=== PATIENT | female | born 1985 | race Hispanic/Latino ===

== ENCOUNTER 2016-08-17 04:27 | Inpatient (IN) | payer BC, OTHER ==
[2016-08-17] MEDS ORDERED: HYDROmorphone 2 mg/ml ISec IVP STA ×2 (04:50→06:12)
--- NOTE | 2016-08-17 04:52 | ED PDOC ---
Arrival/HPI - General Chief Complaint: Chest Pain Time Seen by Provider: 08/17/16 04:36 Historian: Patient - History of Present Illness Narrative History of Present Illness (Text): 08/17/16 04:50 Patience Mustafa is a 31 year old female who presents to the Emergency department complaining of epigastric pain radiating to her back tonight. Patient reports associated nausea and 2 episodes of vomiting. Patient denies any fever, chills, shortness of breath, diarrhea, urinary symptoms, back pain, neck pain, headache , dizziness, or any other complaints. Time/Duration: Other (tonight) Symptom Onset: Gradual Symptom Course: Unchanged Activities at Onset: Rest, Light Context: Home Past Medical History - Provider Review Nursing Documentation Reviewed: Yes - Psychiatric Hx Substance Use: No Family/Social History - Physician Review Nursing Documentation Reviewed: Yes Family/Social History: Unknown Family HX Smoking Status: Never Smoked Hx Alcohol Use: Yes Frequency of alcohol use: Socially Hx Substance Use: No Allergies/Home Meds Allergies/Adverse Reactions: Allergies No Known Allergies Allergy (Verified 08/17/16 04:46) Home Medications: Home Meds Medication Instructions Recorded Confirmed No Known Home Med 08/17/16 08/17/16 Review of Systems - Physician Review All systems were reviewed & negative as marked: Yes - Review of Systems Constitutional: Normal. absent: Fevers Eyes: Normal ENT: Normal Respiratory: Normal. absent: SOB, Cough Cardiovascular: Normal Gastrointestinal: Abdominal Pain, Nausea. absent: Diarrhea Genitourinary Female: Normal. absent: Dysuria, Hematuria, Urine Output Changes Musculoskeletal: Back Pain. absent: Neck Pain Skin: Normal. absent: Rash Neurological: Normal. absent: Headache, Dizziness Endocrine: Normal Hemo/Lymphatic: Normal Psychiatric: Normal Physical Exam Vital Signs Reviewed: Yes Vital Signs Temp Pulse Resp BP Pulse Ox 08/17/16 06:45 98.4 F 79 18 117/71 98 08/17/16 04:42 98.3 F 71 18 141/96 H 100 Temperature: Afebrile Blood Pressure: Normal Pulse: Regular Respiratory Rate: Normal Appearance: Positive for: Well-Appearing, Non-Toxic, Comfortable Pain Distress: None Mental Status: Positive for: Alert and Oriented X 3 - Systems Exam Head: Present: Atraumatic, Normocephalic Pupils: Present: PERRL Extroacular Muscles: Present: EOMI Conjunctiva: Present: Normal Mouth: Present: Moist Mucous Membranes Neck: Present: Normal Range of Motion Respiratory/Chest: Present: Clear to Auscultation, Good Air Exchange. No: Respiratory Distress, Accessory Muscle Use Cardiovascular: Present: Regular Rate and Rhythm, Normal S1, S2. No: Murmurs Abdomen: Present: Tenderness (Epigastric tenderness), Normal Bowel Sounds. No: Distention, Peritoneal Signs Back: Present: Normal Inspection Upper Extremity: Present: Normal Inspection. No: Cyanosis, Edema Lower Extremity: Present: Normal Inspection. No: Edema Neurological: Present: GCS=15, CN II-XII Intact, Speech Normal Skin: Present: Warm, Dry, Normal Color. No: Rashes Psychiatric: Present: Alert, Oriented x 3, Normal Insight, Normal Concentration Medical Decision Making ED Course and Treatment: 08/17/16 04:50 Impression: 31 year old female complaining of epigastric pain radiating to her back with associated nausea and vomiting. Plan: -- US Gallbladder -- EKG -- Labs, cardiac enzymes, amylase, lipase, blood culture, D-dimer -- Urinalysis -- IV fluids -- Zofran -- Protonix -- Dilaudid -- Reassess and disposition Progress Notes: Reviewed EKG, NSR at [address]-segment elevations or depressions, no T-wave inversions, normal intervals. 08/17/16 05:58 Reviewed sono, US Gallbladder shows: Liver: Enlarged, 20.3 cm. Normal echogenicity. No mass. No intrahepatic bile duct dilatation. Gallbladder: Gallstones. Nonmobile stone within neck. No wall thickening. No pericholecystic fluid. No sonographic Perry's sign. Common bile duct: Up to 0.64 cm in diameter. No stones. Pancreas: Unremarkable as visualized. Right kidney: Normal echogenicity. No hydronephrosis. IMPRESSION: 1. Cholelithiasis. 2. Borderline ductal dilatation. Consider MRCP. 3. Incidental/non-acute findings are described above. 08/17/16 06:[address] Canales, who is aware and agrees with plan. Accepts pt in to her service. Pt will be admitted to [facility] observation for abdominal pain and cholelithiasis. Pt is no acute distress. Discussed results and hospital admission with pt, who is aware and verbalizes understanding. - Lab Interpretations Lab Results: 08/17/16 05:15 08/17/16 05:15 Lab Results 08/17/16 05:15: Sodium 142, Potassium 3.7, Chloride 107, Carbon Dioxide 22, Anion Gap 17, BUN 9, Creatinine 0.7, Est GFR ( Amer) > 60, Est GFR (Non- Af Amer) > 60, Random Glucose 99, Calcium 9.6, Total Bilirubin 0.5, AST 22, ALT 28, Alkaline Phosphatase 72, Lactate Dehydrogenase 518, Total Creatine Kinase 132, Troponin I < 0.01, Total Protein 8.2, Albumin 4.7, Globulin 3.5, Albumin/ Globulin Ratio 1.3, Amylase 80, Lipase 70 08/17/16 05:15: Urine Color Yellow, Urine Appearance Clear, Urine pH 6.0, Ur Specific Chaplin 1.025, Urine Protein Negative, Urine Glucose (UA) Negative, Urine Ketones Negative, Urine Blood Negative, Urine Nitrate Negative, Urine Bilirubin Negative, Urine Urobilinogen 1.0 H, Ur Leukocyte Esterase Negative 08/17/16 05:15: PT 11.3, INR 1.05, APTT 28.9, D-Dimer, Quantitative 0.38 08/17/16 05:15: WBC 10.0, RBC 3.91, Hgb 11.7 L, Hct 34.2 L, MCV 87.5, MCH 29.9, MCHC 34.2, RDW 14.8 H, Plt Count 244, MPV 10.8, Gran % 75.8 H, Lymph % (Auto) 17.3 L, Runnels % (Auto) 5.0, Eos % (Auto) 1.7, Baso % (Auto) 0.2, Gran # 7.58 H, Lymph # 1.7, Runnels # 0.5, Eos # 0.2, Baso # 0.02 I have reviewed the lab results: Yes - RAD Interpretation Radiology Orders: 08/17/16 04:51 GALL BLADDER [US] Stat Bell Spinner Sousaphones: Radiologist - EKG Interpretation Interpreted by ED Physician: Yes Type: 12 lead EKG - Medication Orders Current Medication Orders: Sodium Chloride (Sodium Chloride 0.9%) 1,000 mls @ 100 mls/hr IV .Q10H KIRAN Last Admin: 08/17/16 12:34 Dose: 100 mls/hr Metronidazole (Flagyl) 500 mg in 100 mls @ 100 mls/hr IVPB Q8 KIRAN PRN Reason: Protocol Last Admin: 08/17/16 22:39 Dose: 100 mls/hr Ceftriaxone Sodium (Rocephin 1 Gram Ivpb) 1 gm in 100 mls @ 100 mls/hr IVPB DAILY KIRAN PRN Reason: Protocol Morphine Sulfate (Morphine) 2 mg IVP Q4H PRN PRN Reason: Pain, moderate (4-7) Last Admin: 08/17/16 22:39 Dose: 2 mg Ondansetron HCl (Zofran Inj) 4 mg IVP Q6H PRN PRN Reason: Nausea/Vomiting Pantoprazole Sodium (Protonix Inj) 40 mg IVP DAILY KIRAN Discontinued Medications Hydromorphone HCl (Dilaudid) 2 mg IVP STAT STA Stop: 08/17/16 04:51 Last Admin: 08/17/16 05:26 Dose: 2 mg Hydromorphone HCl (Dilaudid) 2 mg IVP STAT STA Stop: 08/17/16 06:13 Last Admin: 08/17/16 06:34 Dose: 2 mg Sodium Chloride (Sodium Chloride 0.9%) 1,000 mls @ 80 mls/hr IV .[id number] KIRAN Last Admin: 08/17/16 05:27 Dose: 80 mls/hr Metronidazole (Flagyl) 500 mg in 100 mls @ 100 mls/hr IVPB STAT STA PRN Reason: Protocol Stop: 08/17/16 07:19 Last Admin: 08/17/16 09:02 Dose: 100 mls/hr Ceftriaxone Sodium (Rocephin 1 Gram Ivpb) 1 gm in 100 mls @ 200 mls/hr IVPB STAT STA PRN Reason: Protocol Stop: 08/17/16 06:48 Last Admin: 08/17/16 06:41 Dose: 200 mls/hr Ondansetron HCl (Zofran Inj) 4 mg IVP STAT STA Stop: 08/17/16 04:51 Last Admin: 08/17/16 05:26 Dose: 4 mg Pantoprazole Sodium (Protonix Inj) 40 mg IVP ONCE STA Stop: 08/17/16 04:51 Last Admin: 08/17/16 05:26 Dose: 40 mg - Scribe Statement The provider has reviewed the documentation as recorded by the Scribe Cary Karen All medical record entries made by the Julianna were at my direction and personally dictated by me. I have reviewed the chart and agree that the record accurately reflects my personal performance of the history, physical exam, medical decision making, and the department course for this patient. I have also personally directed, reviewed, and agree with the discharge instructions and disposition. Disposition/Present on Arrival - Present on Arrival Any Indicators Present on Arrival: No History of DVT/PE: No History of Uncontrolled Diabetes: No Urinary Catheter: No History of Decub. Ulcer: No History Surgical Site Infection Following: None - Disposition Have Diagnosis and Disposition been Completed?: Yes Diagnosis: Abdominal pain Disposition: HOSPITALIZED Disposition Time: 06:15 Condition: FAIR
[2016-08-17] MEDS ORDERED: Sodium Chloride 0.9% 1,000 ML IV SCH (05:00)
[2016-08-17 05:27] LABS: ADD MANUAL DIFF? NO
[2016-08-17 05:39] LABS: URINE BILIRUBIN NEGATIVE (NEGATIVE); URINE BLOOD NEGATIVE (NEGATIVE); URINE GLUCOSE (UA) NEGATIVE (NEGATIVE); URINE KETONE NEGATIVE (NEGATIVE); URINE LEUKOCYTE ESTERASE NEGATIVE Leu/uL (NEGATIVE); URINE PROTEIN NEGATIVE mg/dL (<30 mg/dL)
[2016-08-17 05:42] LABS: ALB/GLOB RATIO 1.3 (1.1-1.8); ALKALINE PHOSPHATASE 72 U/L (38-133); ALT/SGPT 28 U/L (7-56); AMYLASE 80 U/L (35-125); AST/SGOT 22 U/L (15-39); BILIRUBIN,TOTAL 0.5 mg/dL (0.2-1.3); BLOOD UREA NITROGEN 9 mg/dL (7-21); CALCIUM 9.6 mg/dL (8.4-10.5); CARBON DIOXIDE 22 mmol/L (21-33); CHLORIDE 107 mmol/L (98-107); GFR AFRICAN-AMERICAN > 60; GLUCOSE,RANDOM 99 mg/dL (70-110); LIPASE 70 U/L (23-300); POTASSIUM 3.7 mmol/L (3.6-5.0); SODIUM 142 mmol/L (132-148); TOTAL PROTEIN 8.2 g/dL (5.8-8.3)
[2016-08-17 05:44] LABS: BASO # 0.02 K/mm3 (0.0-2.0); BASO % 0.2 % (0.0-3.0); EOS # 0.2 (0.0-0.7); EOS % 1.7 % (1.5-5.0); GRAN # 7.58 (1.4-6.5); GRAN % 75.8 % (50.0-68.0); HEMATOCRIT 34.2 % (36.0-48.0); INR 1.05 (0.93-1.08); LYMPH # 1.7 (1.2-3.4); LYMPH % 17.3 % (22.0-35.0); MEAN CELL VOLUME 87.5 fL (80.0-105.0); MEAN CORPUSCULAR HEMOGLOBIN 29.9 pg (25.0-35.0); MEAN CORPUSCULAR HGB CONC 34.2 g/dl (31.0-37.0); MEAN PLATELET VOLUME 10.8 fl (7.0-11.0); MONO # 0.5 (0.1-0.6); PARTIAL THROMBOPLASTIN TIME 28.9 Seconds (23.7-30.8); PLATELET COUNT 244 10^3/uL (120.0-450.0); RED CELL DISTRIBUTION WIDTH 14.8 % (11.5-14.5)
[2016-08-17 05:46] LABS: D DIMER 0.38 mg/L FEU (0-0.50)
[2016-08-17 05:47] LABS: URINE APPEARANCE CLEAR (CLEAR); URINE COLOR YELLOW (YELLOW)
--- NOTE | 2016-08-17 05:58 | US ---
EXAM: US Abdomen Limited, Right Upper Quadrant CLINICAL HISTORY: 31 years old, female; Pain; Abdominal pain; Generalized; Additional info: Ruq pain TECHNIQUE: Real-time ultrasound of the right upper quadrant with image documentation. COMPARISON: No relevant prior studies available. FINDINGS: Liver: Enlarged, 20.3 cm. Normal echogenicity. No mass. No intrahepatic bile duct dilatation. Gallbladder: Gallstones. Nonmobile stone within neck. No wall thickening. No pericholecystic fluid. No sonographic Perry's sign. Common bile duct: Up to 0.64 cm in diameter. No stones. Pancreas: Unremarkable as visualized. Right kidney: Normal echogenicity. No hydronephrosis. IMPRESSION: 1. Cholelithiasis. 2. Borderline ductal dilatation. Consider MRCP. 3. Incidental/non-acute findings are described above.
[2016-08-17 06:01] LABS: TROPONIN I < 0.01 ng/mL
[2016-08-17] MEDS ORDERED: cefTRIAXone 1 gm 1 GM/100 ML BAG IVPB STA (06:19)
[2016-08-17] MEDS ORDERED: metroNIDAZOLE IV 500 mg/100 ml 500 MG/100 ML BAG IVPB STA (06:20)
[2016-08-17] MEDS ORDERED: Sodium Chloride 0.9% 1,000 ML IV STA (06:24)
[2016-08-17] MEDS: Morphine 2 mg/ml ISec IVP PRN ×5 (10:34→22:39)
--- NOTE | 2016-08-17 12:33 | HP ---
This 31-year-old female was examined at her bedside and her case was reviewed with herself and her nurse, Halle Diego. The patient presented to the [facility] ER last evening with mid epigastric pain, nausea and vomiting and was found on gallbladder ultrasound in the Emergency Room to have gallstones with no wall thickening of her gallbladder, no pericholecystic fluid and no Perry sign, but a borderline duct dilatation of her common bile duct, for which MRCP was recommended. The patient was seen earlier today by nurse Anu Jung who works with Dr. Valeria Davenport from and the patient has been scheduled for MRCP to rule out a common bile duct stone. The patient states her last meal was last evening, that she had a bowel movement yesterday and has had no further vomiting today. At present, she remains n.p.o. and is receiving IV fluids and has received IV Flagyl and IV morphine earlier this morning. She is also receiving IV Protonix, morphine p.r.n. severe pain and Zofran p.r.n. nausea and vomiting. On further questioning of the patient, she has no significant past medical history. She had 2 natural vaginal delivery childbirths. She has had no major abdominal surgery and has no medical illness nor takes any prescription medication. ALLERGIES: She has no known allergies to medication. REVIEW OF SYSTEMS: HEAD: No headache or seizure. EYES: No change in visual acuity. EARS: No hearing loss. THROAT: No swallowing difficulty. NECK: No stiffness. CARDIAC: No hypertension, no coronary artery disease. PULMONARY: No cough, no hemoptysis. GASTROINTESTINAL: As per HPI. No knowledge of gallstones in her past. No knowledge of peptic ulcer disease. No knowledge of stomach ulcers. GENITOURINARY: No dysuria. SKIN: Without rash. NEUROLOGICAL: No knowledge of stroke. VASCULAR: No claudication. ENDOCRINE: No knowledge of thyroid disease or hyperlipidemia or diabetes. FAMILY HISTORY: Noncontributory. SOCIAL HISTORY: She is a social drinker, nonsmoking, non-IV drug misuser. PHYSICAL EXAMINATION: VITAL SIGNS: Temperature 98.4, respirations 18, pulse 79, and blood pressure 117/71 with a pulse ox of 100% on room air. HEAD: Normocephalic, atraumatic. EYES: No icterus. EARS: Clear. THROAT: Noninjected. NECK: Supple. HEART: S1, S2. LUNGS: Clear. ABDOMEN: Soft, no palpable organomegaly, no rebound, no guarding, no tenderness. EXTREMITIES: No clubbing, no cyanosis, no edema. SKIN: Without rash. NEUROLOGICAL: Intact. PSYCHOLOGICAL: Alert. VASCULAR: Legs warm to touch. LABORATORIES: White count 10,000, hemoglobin 11.7, hematocrit 34.2, platelets 244,000. PT/INR 1.05, PTT 28.9. Sodium 142, K 3.7, chloride 107, bicarb 22, BUN 9, creatinine 0.7, random blood sugar 99. Bilirubin normal 0.5, AST 22, ALT 28, alk phos 72. CPK normal 132. Troponin less than 0.01, normal. Amylase 80, normal. Lipase 70, normal. Urinalysis was unremarkable and urine test was negative. Gallbladder ultrasound showed cholelithiasis and a borderline ductal dilatation , for which MRCP was recommended. IMPRESSION: A 31-year-old female admitted with cholelithiasis, abdominal pain, rule out cholecystitis, rule out obstructive gallstones. PLAN: At present is to proceed with MRCP and HIDA scan. The patient remains n.p.o. She will continue on IV fluids. She has an order for Zofran 4 mg IV q. 4 hours p.r.n. nausea, vomiting. She did receive Rocephin and Flagyl earlier today. She will continue on Protonix 40 mg IV daily, morphine 2 mg IV q. 4 hours p.r.n. severe pain. I have asked the nurse to discuss with Dr. Davenport whether this patient should have her diet advanced at any point today and also if he wishes for her to continue on IV Rocephin and Flagyl. All of this was discussed in detail with the patient, her nurse and her prognosis remains stable at present. Farrah Saab MD cc: [id number] TT: 08/17/2016 12:33:16 en MTDD
[2016-08-17] MEDS: Sodium Chloride 0.9% 1,000 ML IV SCH (12:34)
[2016-08-17] MEDS: metroNIDAZOLE IV 500 mg/100 ml 500 MG/100 ML BAG IVPB SCH ×2 (14:39→22:39)
--- NOTE | 2016-08-17 16:08 | CON ---
DATE: 08/17/2016 Seen and examined at the bedside earlier this morning. The chart was reviewed. REQUEST FOR CONSULTATION: For abdominal pain. HISTORY OF PRESENT ILLNESS: This is a 31-year-old female with no significant past medical history, c mohsen to the Emergency Room with complaints of increasing epigastric pain that radiates to her back. S he states that it started around 10 p.m. on Wednesday and took some tea and felt better, but the pain did come back and was getting worse. She did complain of some nausea and vomiting. Her last vomitus was before she went to the Emergency Room. Denies any bilious or any hematemesis. Normally moves h er bowels okay. She did have a bowel movement prior to coming to the hospital and it was soft. Marcelino es any melena or bright red blood per rectum. No complaints of any fever or chills. Denies any weig ht loss, loss of appetite, acid reflux. The patient is here currently visiting her grandmother. The patient, on admission, had an abdominal ultrasound and that showed liver appeared enlarged, no mass, but it did show some cholelithiasis, nonmobile stone within the neck, no pericholecystic fluid and t he common bile duct measured 0.64, borderline ductal dilatation, no stones. PAST MEDICAL HISTORY: She had a baby about 4 months ago. Denies any history of cardiac disease, alber betes or pulmonary disease. Gave recently 4 months ago. PAST SURGICAL HISTORY: Denies. Last menstrual period of the patient was in April. The patient has Depo-Provera control. FAMILY HISTORY: Her grandmother on her paternal side, breast cancer. SOCIAL HISTORY: Denies smoking, recreational drug use, occasionally drinks alcohol socially. MEDICATIONS: Takes vitamins. Denies any use of NSAIDs. ALLERGIES: No known drug allergies. REVIEW OF SYSTEMS: Systems reviewed with positive findings, see HPI. VITAL SIGNS: Temperature is 98.4, blood pressure is 117/71, pulse 79, respirations 18, 98% on room a ir. LABORATORIES: WBC is 10.0, H and H is 11.7 and 34.2, platelets of 244. PT 11.3, INR is 1.05, PTT 28 .9. D-dimer 0.38. Sodium 142, K is 3.7, BUN is 9, creatinine 0.7. LFTs are within normal limits. Amylase is 80 and lipase is 70. Urine is negative for leukocyte esterase and urine test wa s negative. PHYSICAL EXAMINATION: HEENT: Sclera is anicteric. NECK: Supple. CARDIAC: S1, S2. LUNGS: Clear. ABDOMEN: With bowel sounds, soft. She does have epigastric tenderness. No rebound, guarding, or or ganomegaly. LOWER EXTREMITIES: Positive pedal pulses, no edema. NEUROLOGIC: Awake, alert, and oriented. ASSESSMENT: This is a 31-year-old female with no significant past medical history except for childbi rth, recently giving 4 months ago, came with abdominal pain, mostly epigastric, radiating to he r back. She did have an abdominal ultrasound reporting cholelithiasis with stone at the neck of the gallbladder and a borderline common bile duct. Rule out any cholecystitis, rule out any common bile duct stones. PLAN: We will request for a HIDA scan and MRCP. Keep her n.p.o. Consider liquids after these are d one. Continue IV fluids for hydration. We will continue her IV antibiotics of ceftriaxone she got i n the ER. We will continue that for tomorrow and Flagyl she is getting 500 q. 8 hours with the next dose to be due at 2 p.m. Continue PPI. She gets Zofran p.r.n. nausea and morphine for pain. Consid er a surgical consult. We will speak with Dr. Saab. Monitor liver function tests. Thank you for this consult and for allowing us to participate in your patient's care. We will make crispin felix recommendations based upon patient's clinical course. The patient was seen and case discussed with Dr. Davenport. Spoke with nursing staff. Anu JEFFERSON cc: [id number] TT: 08/17/2016 14:15:42 Confirmation # [id number] Dictation # [id number]
--- NOTE | 2016-08-17 16:51 | CARD ---
APPROVED REPORT EKG Measurement Heart [id number] <Conclusion> Normal sinus rhythm Normal ECG
--- NOTE | 2016-08-18 01:31 | CP.PCM.PN ---
Subjective - Date & Time of Evaluation Date of Evaluation: 08/18/16 Time of Evaluation: 01:28 - Subjective Subjective: Seen at bed side because she was requesting tylenol for pain and something to eat. Offered no complaints when seen. Had received morphine for pain and has no complaint of pain anymore. Denies nausea, vomiting , diarrhoea, chest pain , sob. Medical record was reviewed. This 31 year old woman is here for epigastric pain , nausea, vomiting, cholelithiasis Has PMH of no significance. Objective - Vital Signs/Intake and Output Vital Signs (last 24 hours): Temp Pulse Resp BP Pulse Ox 98 F 60 16 119/67 100 08/17/16 17:19 08/17/16 17:19 08/17/16 17:19 08/17/16 17:19 08/17/16 17:19 Intake and Output: 08/17/16 08/18/16 18:59 06:59 Intake Total 0 Balance 0 - Medications Medications: Current Medications Sodium Chloride (Sodium Chloride 0.9%) 1,000 mls @ 100 mls/hr IV .Q10H [facility] Last Admin: 08/17/16 12:34 Dose: 100 mls/hr Metronidazole (Flagyl) 500 mg in 100 mls @ 100 mls/hr IVPB Q8 KIRAN PRN Reason: Protocol Last Admin: 08/17/16 22:39 Dose: 100 mls/hr Ceftriaxone Sodium (Rocephin 1 Gram Ivpb) 1 gm in 100 mls @ 100 mls/hr IVPB DAILY KIRAN PRN Reason: Protocol Morphine Sulfate (Morphine) 2 mg IVP Q4H PRN PRN Reason: Pain, moderate (4-7) Last Admin: 08/17/16 22:39 Dose: 2 mg Ondansetron HCl (Zofran Inj) 4 mg IVP Q6H PRN PRN Reason: Nausea/Vomiting Pantoprazole Sodium (Protonix Inj) 40 mg IVP DAILY [facility] - Labs Labs: PT 11.3 Seconds (9.9-11.8) 08/17/16 05:15 INR 1.05 (0.93-1.08) 08/17/16 05:15 APTT 28.9 Seconds (23.7-30.8) 08/17/16 05:15 - Constitutional Appears: Well, No Acute Distress - Head Exam Head Exam: ATRAUMATIC, NORMAL INSPECTION, NORMOCEPHALIC - Eye Exam Eye Exam: Normal appearance - ENT Exam ENT Exam: Normal External Ear Exam - Neck Exam Neck Exam: Normal Inspection - Respiratory Exam Respiratory Exam: NORMAL BREATHING PATTERN - Cardiovascular Exam Cardiovascular Exam: absent: JVD - GI/Abdominal Exam GI & Abdominal Exam: absent: Distended - Rectal Exam Rectal Exam: Deferred - Exam Additional comments: deferred. - Extremities Exam Extremities Exam: Normal Inspection - Back Exam Back Exam: NORMAL INSPECTION - Neurological Exam Neurological Exam: Alert, Awake, Oriented x3 - Psychiatric Exam Psychiatric exam: Normal Affect, Normal Mood - Skin Skin Exam: Normal Color Assessment and Plan - Assessment and Plan (Free Text) Assessment: Abdominal pain. Nausea/vomiting. Cholelithiasis. r/o cholecystitis. Plan: Observation . Continue present management.
[2016-08-18] MEDS: metroNIDAZOLE IV 500 mg/100 ml 500 MG/100 ML BAG IVPB SCH ×3 (06:38→21:10)
[2016-08-18] MEDS: Sodium Chloride 0.9% 1,000 ML IV SCH ×2 (06:39→21:39)
[2016-08-18 06:59] LABS: ADD MANUAL DIFF? NO
[2016-08-18 07:07] LABS: BASO # 0.01 K/mm3 (0.0-2.0); BASO % 0.1 % (0.0-3.0); EOS # 0.1 (0.0-0.7); EOS % 1.3 % (1.5-5.0); GRAN # 6.56 (1.4-6.5); HEMATOCRIT 34.2 % (36.0-48.0); LYMPH # 1.6 (1.2-3.4); LYMPH % 17.3 % (22.0-35.0); MEAN CELL VOLUME 86.8 fL (80.0-105.0); MEAN CORPUSCULAR HEMOGLOBIN 29.2 pg (25.0-35.0); MEAN CORPUSCULAR HGB CONC 33.6 g/dl (31.0-37.0); MEAN PLATELET VOLUME 10.4 fl (7.0-11.0); MONO # 0.8 (0.1-0.6); MONO % 8.3 % (1.0-6.0); PLATELET COUNT 249 10^3/uL (120.0-450.0); RED CELL DISTRIBUTION WIDTH 14.4 % (11.5-14.5)
[2016-08-18 07:29] LABS: ALB/GLOB RATIO 1.2 (1.1-1.8); ALKALINE PHOSPHATASE 81 U/L (38-133); ALT/SGPT 37 U/L (7-56); AST/SGOT 25 U/L (15-39); BILIRUBIN,TOTAL 1.1 mg/dL (0.2-1.3); BLOOD UREA NITROGEN 4 mg/dL (7-21); CALCIUM 9.4 mg/dL (8.4-10.5); CARBON DIOXIDE 22 mmol/L (21-33); CHLORIDE 104 mmol/L (98-107); GFR AFRICAN-AMERICAN > 60; GLUCOSE,RANDOM 101 mg/dL (70-110); POTASSIUM 3.5 mmol/L (3.6-5.0); SODIUM 140 mmol/L (132-148); TOTAL PROTEIN 7.8 g/dL (5.8-8.3)
[2016-08-18] MEDS ORDERED: Gadodiamide 287 MG/ML VIAL (15ML) IV ONE (08:55)
[2016-08-18] MEDS: Morphine 2 mg/ml ISec IVP PRN ×2 (10:58→21:34)
[2016-08-18] MEDS: cefTRIAXone 1 gm 1 GM/100 ML BAG IVPB SCH (11:01)
--- NOTE | 2016-08-18 11:09 | NM ---
PROCEDURE: Nuclear Medicine Hepatobiliary Scan HISTORY: ab pain COMPARISON: Ultrasound same day TECHNIQUE: 6.4 mCi of technetium 99m Mebrofenin was administered intravenously. Planar images of the abdomen were obtained at 5 min intervals to 60 mins. Delayed images were also obtained. FINDINGS: LIVER: Timely and homogenous uptake. COMMON BILE DUCT: identified at 15 mins. GALLBLADDER: Not visualized SMALL BOWEL: Identified at 30 mins. IMPRESSION: Nonvisualization of the gallbladder even on delayed images consistent with cholecystitis
--- NOTE | 2016-08-18 12:09 | MRI ---
PROCEDURE: Magnetic Resonance Cholangiopancreatography MRI of the abdomen with and without contrast HISTORY: COMPARISON: None available. TECHNIQUE: Multiplanar, multisequence MR images of the abdomen were obtained, including heavily T2 weighted MRCP images of the biliary system. Rotating maximum intensity projection images of the biliary system were generated. 15 cc of Omniscan FINDINGS: MRCP: The common bile duct is of a normal caliber. No evidence of choledocholithiasis. No intrahepatic biliary ductal dilatation. LIVER: Unremarkable. GALLBLADDER: The gallbladder is distended and filled with multiple stones including 14 mm stone in the neck of the gallbladder. Pericholecystic fluid. Findings are suspicious for cholecystitis. SPLEEN: Unremarkable. PANCREAS: Unremarkable. ADRENALS: Unremarkable. KIDNEYS: Unremarkable. AORTA: No aneurysm. ASCITES: None. OTHER FINDINGS: No enhancing lesions IMPRESSION: The gallbladder is distended and filled with multiple stones including 14 mm stone in the neck of the gallbladder. Pericholecystic fluid. Findings are suspicious for cholecystitis. No evidence of common duct stone
--- NOTE | 2016-08-18 12:45 | CP.PCM.CON ---
History of Present Illness - History of Present Illness History of Present Illness: General Surgery Consult Note for Dr. Roca 31 year old female with no significant past medical history presents to [facility] [place] with epigastric abdominal pain. Surgical consultation was requested to evaluate patient's cholecystitis. Patient reports her abdominal pain started on 08/15/16 soon after having fast food for dinner. The pain is located at epigastrium, sharp pain in quality, and it radiates to her back. No prior history of the same. The pain resolved on its own couple of hours later, but it returned a day after. Patient reports to have nausea and 4 episodes of NBNB vomiting. Patient's pain worsened and decided to come to the ED on 08/17/16 early in the morning. Patient did not take any pain medications at home. Denies headache, dizziness, fever, chills, chest pain, shortness of breath, diarrhea, or urinary symptoms. PMD: none PMHx: none PSHx: none Allergy: NKDA Social Hx: Denies tobacco and drug use. Admits to social alcohol consumption. Lives at home with 2 children (one was born 4 month ago) Family Hx: aunt had cholecystectomy 1 year ago Home meds: multivitamin, depo provera Review of Systems - Review of Systems All systems: reviewed and no additional remarkable complaints except - Constitutional Constitutional: As Per HPI. absent: Chills, Fever, Headache - EENT Eyes: As Per HPI. absent: Blurred Vision, Loss of Vision Ears: As Per HPI. absent: Dizziness Nose/Mouth/Throat: As Per HPI - Cardiovascular Cardiovascular: As Per HPI. absent: Chest Pain, Lightheadedness, Syncope - Respiratory Respiratory: As Per HPI - Gastrointestinal Gastrointestinal: As Per HPI, Nausea, Vomiting. absent: Diarrhea - Genitourinary Genitourinary: As Per HPI. absent: Hematuria, Urinary Frequency - Musculoskeletal Musculoskeletal: As Per HPI - Integumentary Integumentary: As Per HPI - Neurological Neurological: As Per HPI. absent: Dizziness, Syncope, Tremor - Psychiatric Psychiatric: As Per HPI. absent: Confusion, Depression - Endocrine Endocrine: As Per HPI - Hematologic/Lymphatic Hematologic: As Per HPI Past Patient History - Past Social History Smoking Status: Never Smoked - CARDIAC Hx Cardiac Disorders: No - PULMONARY Hx Respiratory Disorders: No - NEUROLOGICAL Hx Neurological Disorder: No - HEENT Hx HEENT Problems: No - RENAL Hx Chronic Kidney Disease: No - ENDOCRINE/METABOLIC Hx Endocrine Disorders: No - HEMATOLOGICAL/ONCOLOGICAL Hx Blood Disorders: No - INTEGUMENTARY Hx Dermatological Problems: No - MUSCULOSKELETAL/RHEUMATOLOGICAL Hx Musculoskeletal Disorders: No Hx Falls: No - GASTROINTESTINAL Hx Gastrointestinal Disorders: No - GENITOURINARY/GYNECOLOGICAL Hx Genitourinary Disorders: No - PSYCHIATRIC Hx Substance Use: No - SURGICAL HISTORY Hx Surgeries: No Meds Allergies/Adverse Reactions: Allergies Allergy/AdvReac Type Severity Reaction Status Date / Time No Known Allergies Allergy Verified 08/17/16 04:46 - Medications Medications: Current Medications Sodium Chloride (Sodium Chloride 0.9%) 1,000 mls @ 100 mls/hr IV .Q10H [facility] Last Admin: 08/18/16 06:39 Dose: 100 mls/hr Metronidazole (Flagyl) 500 mg in 100 mls @ 100 mls/hr IVPB Q8 [facility] PRN Reason: Protocol Last Admin: 08/18/16 06:38 Dose: 100 mls/hr Ceftriaxone Sodium (Rocephin 1 Gram Ivpb) 1 gm in 100 mls @ 100 mls/hr IVPB DAILY [facility] PRN Reason: Protocol Last Admin: 08/18/16 11:01 Dose: 100 mls/hr Morphine Sulfate (Morphine) 2 mg IVP Q4H PRN PRN Reason: Pain, moderate (4-7) Last Admin: 08/18/16 10:58 Dose: 2 mg Ondansetron HCl (Zofran Inj) 4 mg IVP Q6H PRN PRN Reason: Nausea/Vomiting Pantoprazole Sodium (Protonix Inj) 40 mg IVP DAILY [facility] Last Admin: 08/18/16 10:58 Dose: 40 mg Physical Exam - Constitutional Appears: Non-toxic, No Acute Distress - Head Exam Head Exam: ATRAUMATIC, NORMAL INSPECTION - Eye Exam Eye Exam: EOMI, Normal appearance - ENT Exam ENT Exam: Mucous Membranes Moist - Neck Exam Neck exam: Positive for: Normal Inspection - Respiratory Exam Respiratory Exam: NORMAL BREATHING PATTERN. absent: Respiratory Distress - Cardiovascular Exam Cardiovascular Exam: +S1, +S2 - GI/Abdominal Exam GI & Abdominal Exam: Soft, Tenderness (epigastric and RUQ tenderness) - Extremities Exam Extremities exam: Positive for: normal capillary refill, normal inspection, pedal pulses present - Neurological Exam Neurological exam: Alert, Oriented x3 - Psychiatric Exam Psychiatric exam: Normal Affect, Normal Mood - Skin Skin Exam: Dry, Intact, Normal Color, Warm Results - Vital Signs Recent Vital Signs: Last Vital Signs Temp 99.2 F 08/18/16 08:18 Pulse 88 08/18/16 08:18 Resp 20 08/18/16 08:18 BP 136/85 08/18/16 08:18 Pulse Ox 99 08/18/16 08:18 - Labs Result Diagrams: 08/18/16 06:45 08/18/16 06:45 Labs: Laboratory Results - last 24 hr 08/18/16 08/18/16 06:45 06:45 WBC 9.0 RBC 3.94 Hgb 11.5 L Hct 34.2 L MCV 86.8 MCH 29.2 MCHC 33.6 RDW 14.4 Plt Count 249 MPV 10.4 Gran % 73.0 H Lymph % (Auto) 17.3 L Traill % (Auto) 8.3 H Eos % (Auto) 1.3 L Baso % (Auto) 0.1 Gran # 6.56 H Lymph # 1.6 Traill # 0.8 H Eos # 0.1 Baso # 0.01 Sodium 140 Potassium 3.5 L Chloride 104 Carbon Dioxide 22 Anion Gap 18 BUN 4 L Creatinine 0.7 Est GFR ( Amer) > 60 Est GFR (Non-Af Amer) > 60 Random Glucose 101 Calcium 9.4 Total Bilirubin 1.1 AST 25 ALT 37 Alkaline Phosphatase 81 Total Protein 7.8 Albumin 4.3 Globulin 3.5 Albumin/Globulin Ratio 1.2 Assessment & Plan - Assessment and Plan (Free Text) Assessment: 31 year old overweight (BMI 25.8) female with no significant past medical history presents with cholecystitis Plan: Cholecystitis -NPO after midnight -Planned for OR tomorrow -MRCP showed distended gallbladder filled with stones, suspicious of cholecystitis (see report) -HIDA scan showed images consistent with cholecystitis -Medical management per primary team -Follow GI recommendations -Will d/w attending Dr. Roca
--- NOTE | 2016-08-18 17:21 | CP.PCM.PN ---
Subjective - Date & Time of Evaluation Date of Evaluation: 08/18/16 Time of Evaluation: 10:05 - Subjective Subjective: S&E earlier today, Abdominal pain with some improvement today, no fever or chill or acute overnight event. went for MRCP found to have constipation, GB stone and acute cholecytitis, CBD prominent but no stones, HIDA (+) for cystic duct obstruction. No N/V. Objective - Vital Signs/Intake and Output Vital Signs (last 24 hours): Temp Pulse Resp BP Pulse Ox 100.3 F H 104 H 18 131/84 97 08/18/16 16:00 08/18/16 16:00 08/18/16 16:00 08/18/16 16:00 08/18/16 16:00 Intake and Output: 08/18/16 08/18/16 06:59 18:59 Intake Total 0 2400 Balance 0 2400 - Medications Medications: Current Medications Acetaminophen (Tylenol 325mg Tab) 650 mg PO Q6H PRN PRN Reason: Fever >100.4 F Sodium Chloride (Sodium Chloride 0.9%) 1,000 mls @ 100 mls/hr IV .Q10H [facility] Last Admin: 08/18/16 06:39 Dose: 100 mls/hr Metronidazole (Flagyl) 500 mg in 100 mls @ 100 mls/hr IVPB Q8 [facility] PRN Reason: Protocol Last Admin: 08/18/16 14:57 Dose: 100 mls/hr Ceftriaxone Sodium (Rocephin 1 Gram Ivpb) 1 gm in 100 mls @ 100 mls/hr IVPB DAILY [facility] PRN Reason: Protocol Last Admin: 08/18/16 11:01 Dose: 100 mls/hr Morphine Sulfate (Morphine) 2 mg IVP Q4H PRN PRN Reason: Pain, moderate (4-7) Last Admin: 08/18/16 10:58 Dose: 2 mg Ondansetron HCl (Zofran Inj) 4 mg IVP Q6H PRN PRN Reason: Nausea/Vomiting Pantoprazole Sodium (Protonix Inj) 40 mg IVP DAILY [facility] Last Admin: 08/18/16 10:58 Dose: 40 mg - Labs Labs: 08/18/16 06:45 08/18/16 06:45 PT 11.3 Seconds (9.9-11.8) 08/17/16 05:15 INR 1.05 (0.93-1.08) 08/17/16 05:15 APTT 28.9 Seconds (23.7-30.8) 08/17/16 05:15 - Constitutional Appears: No Acute Distress - Eye Exam Eye Exam: Normal appearance. absent: Scleral icterus - ENT Exam ENT Exam: Mucous Membranes Moist - Neck Exam Neck Exam: Normal Inspection - Respiratory Exam Respiratory Exam: Clear to Ausculation Bilateral, NORMAL BREATHING PATTERN - Cardiovascular Exam Cardiovascular Exam: +S1, +S2 - GI/Abdominal Exam GI & Abdominal Exam: Soft, Tenderness (mid abdomen), Normal Bowel Sounds. absent: Guarding, Rebound - Extremities Exam Extremities Exam: Normal Capillary Refill. absent: Calf Tenderness, Pedal Edema - Neurological Exam Neurological Exam: Alert, Awake, Oriented x3 - Skin Skin Exam: Dry, Warm Assessment and Plan - Assessment and Plan (Free Text) Assessment: ASSESSMENT: Acute Cholecystitis Cholelithiasis Prominent CBD approx, 7 mm, MRCP no CBD stone Recent childbirth 4 months ago PLAN: NPO, continue IVF continue PPI Surgical eval, Dr. Roca continue Flagyl, Ceftiaxone Pain MGt encourage ambulation /OOB, pt says she gets OOB. Seen by surgery, for OR tomorrow, and started on clears as per SX and npo midnight. Seen and discussed w/ Dr. Davenport.
[2016-08-19] MEDS: metroNIDAZOLE IV 500 mg/100 ml 500 MG/100 ML BAG IVPB SCH ×3 (06:28→21:29)
[2016-08-19] MEDS: Sodium Chloride 0.9% 1,000 ML IV SCH (06:28)
[2016-08-19] MEDS: Morphine 2 mg/ml ISec IVP PRN ×4 (06:29→23:00)
[2016-08-19 07:05] LABS: ADD MANUAL DIFF? NO
[2016-08-19 07:14] LABS: BASO # 0.01 K/mm3 (0.0-2.0); BASO % 0.1 % (0.0-3.0); EOS # 0.4 (0.0-0.7); EOS % 4.6 % (1.5-5.0); GRAN # 4.91 (1.4-6.5); GRAN % 62.9 % (50.0-68.0); HEMATOCRIT 32.4 % (36.0-48.0); LYMPH # 1.8 (1.2-3.4); LYMPH % 23.3 % (22.0-35.0); MEAN CELL VOLUME 87.8 fL (80.0-105.0); MEAN CORPUSCULAR HEMOGLOBIN 29.3 pg (25.0-35.0); MEAN CORPUSCULAR HGB CONC 33.3 g/dl (31.0-37.0); MEAN PLATELET VOLUME 10.8 fl (7.0-11.0); MONO # 0.7 (0.1-0.6); MONO % 9.1 % (1.0-6.0); PLATELET COUNT 238 10^3/uL (120.0-450.0); RED CELL DISTRIBUTION WIDTH 14.6 % (11.5-14.5); WHITE BLOOD COUNT 7.8 10^3/ul (4.5-11.0)
[2016-08-19 07:23] LABS: INR 1.09 (0.93-1.08); PARTIAL THROMBOPLASTIN TIME 29.7 Seconds (23.7-30.8)
[2016-08-19 07:28] LABS: ALB/GLOB RATIO 1.2 (1.1-1.8); ALKALINE PHOSPHATASE 72 U/L (38-133); ALT/SGPT 61 U/L (7-56); AST/SGOT 35 U/L (15-39); BILIRUBIN,TOTAL 0.8 mg/dL (0.2-1.3); BLOOD UREA NITROGEN 4 mg/dL (7-21); CALCIUM 8.9 mg/dL (8.4-10.5); CARBON DIOXIDE 26 mmol/L (21-33); CHLORIDE 106 mmol/L (98-107); GFR AFRICAN-AMERICAN > 60; GLUCOSE,RANDOM 98 mg/dL (70-110); POTASSIUM 3.8 mmol/L (3.6-5.0); SODIUM 140 mmol/L (132-148); TOTAL PROTEIN 7.5 g/dL (5.8-8.3)
[2016-08-19] MEDS: cefTRIAXone 1 gm 1 GM/100 ML BAG IVPB SCH (09:31)
--- NOTE | 2016-08-19 11:14 | CP.PCM.PN ---
Subjective - Date & Time of Evaluation Date of Evaluation: 08/19/16 Time of Evaluation: 08:10 - Subjective Subjective: S&E this am at bedside, feel slightly better, had Tmax 100.3 yesterday, blood culture negative, remains on IV antibiotics, NPO for OR today. No new complaints. Objective - Vital Signs/Intake and Output Vital Signs (last 24 hours): Temp Pulse Resp BP Pulse Ox 98.9 F 87 20 121/75 99 08/19/16 08:58 08/19/16 08:58 08/19/16 08:58 08/19/16 08:58 08/19/16 08:58 Intake and Output: 08/19/16 08/19/16 06:59 18:59 Intake Total 3000 Balance 3000 - Medications Medications: Current Medications Acetaminophen (Tylenol 325mg Tab) 650 mg PO Q6H PRN PRN Reason: Fever >100.4 F Last Admin: 08/18/16 17:57 Dose: 650 mg Sodium Chloride (Sodium Chloride 0.9%) 1,000 mls @ 100 mls/hr IV .Q10H [facility] Last Admin: 08/19/16 06:28 Dose: 100 mls/hr Metronidazole (Flagyl) 500 mg in 100 mls @ 100 mls/hr IVPB Q8 [facility] PRN Reason: Protocol Last Admin: 08/19/16 06:28 Dose: 100 mls/hr Ceftriaxone Sodium (Rocephin 1 Gram Ivpb) 1 gm in 100 mls @ 100 mls/hr IVPB DAILY [facility] PRN Reason: Protocol Last Admin: 08/19/16 09:31 Dose: 100 mls/hr Morphine Sulfate (Morphine) 2 mg IVP Q4H PRN PRN Reason: Pain, moderate (4-7) Last Admin: 08/19/16 10:30 Dose: 2 mg Ondansetron HCl (Zofran Inj) 4 mg IVP Q6H PRN PRN Reason: Nausea/Vomiting Pantoprazole Sodium (Protonix Inj) 40 mg IVP DAILY [facility] Last Admin: 08/19/16 09:31 Dose: 40 mg - Labs Labs: 08/19/16 06:50 08/19/16 06:50 PT 11.8 Seconds (9.9-11.8) 08/19/16 06:50 INR 1.09 (0.93-1.08) H 08/19/16 06:50 APTT 29.7 Seconds (23.7-30.8) 08/19/16 06:50 - Constitutional Appears: No Acute Distress - Head Exam Head Exam: NORMOCEPHALIC - Eye Exam Eye Exam: Normal appearance. absent: Scleral icterus - ENT Exam ENT Exam: Mucous Membranes Moist - Neck Exam Neck Exam: Normal Inspection - Respiratory Exam Respiratory Exam: Clear to Ausculation Bilateral, NORMAL BREATHING PATTERN. absent: Respiratory Distress - Cardiovascular Exam Cardiovascular Exam: +S1, +S2 - GI/Abdominal Exam GI & Abdominal Exam: Soft, Tenderness (epigastric, mild), Normal Bowel Sounds. absent: Guarding, Organomegaly, Rebound - Extremities Exam Extremities Exam: absent: Calf Tenderness, Pedal Edema - Neurological Exam Neurological Exam: Alert, Awake, Oriented x3 - Skin Skin Exam: Dry, Warm Assessment and Plan - Assessment and Plan (Free Text) Assessment: ASSESSMENT: Acute Cholecystitis Cholelithiasis Prominent CBD approx, 7 mm, MRCP no CBD stone Recent childbirth 4 months ago PLAN: NPO, continue IVF continue PPI continue Flagyl, Ceftiaxone Pain MGt encourage ambulation /OOB, pt says she gets OOB. monitor H/H, LFT Planned for OR today, lap cholecystectomy. Seen and discussed w/ Dr. Davenport.
--- NOTE | 2016-08-19 11:22 | CP.PCM.PN ---
Subjective - Date & Time of Evaluation Date of Evaluation: 08/18/16 Time of Evaluation: 11:00 - Subjective Subjective: Patient was examined at her bedside. Her was present. The patient denied anyfurther vomiting. She was seen earlier by GI. She has completed her HIDA and MRCP. The results were suggestive of cholecystitis. The patient denied fever or chills. She remains NPO. I have requested a surgical consultation with Dr. Roca. Vital Signs (72 hours) 08/17/16 08/17/16 08/17/16 04:42 06:45 12:51 Temperature 98.3 F 98.4 F Pulse Rate 71 79 Respiratory 18 18 20 Rate Blood Pressure 141/96 H 117/71 O2 Sat by Pulse 100 98 Oximetry 08/17/16 08/18/16 08/18/16 17:19 08:18 16:00 Temperature 98 F 99.2 F 100.3 F H Pulse Rate 60 88 104 H Respiratory 16 20 18 Rate Blood Pressure 119/67 136/85 131/84 O2 Sat by Pulse 100 99 97 Oximetry 08/18/16 08/19/16 17:57 08:58 Temperature 100.3 F H 98.9 F Pulse Rate 87 Respiratory 20 Rate Blood Pressure 121/75 O2 Sat by Pulse 99 Oximetry Objective - Vital Signs/Intake and Output Vital Signs (last 24 hours): Temp Pulse Resp BP Pulse Ox 98.9 F 87 20 121/75 99 08/19/16 08:58 08/19/16 08:58 08/19/16 08:58 08/19/16 08:58 08/19/16 08:58 Intake and Output: 08/19/16 08/19/16 06:59 18:59 Intake Total 3000 Balance 3000 - Medications Medications: Current Medications Acetaminophen (Tylenol 325mg Tab) 650 mg PO Q6H PRN PRN Reason: Fever >100.4 F Last Admin: 08/18/16 17:57 Dose: 650 mg Sodium Chloride (Sodium Chloride 0.9%) 1,000 mls @ 100 mls/hr IV .Q10H [facility] Last Admin: 08/19/16 06:28 Dose: 100 mls/hr Metronidazole (Flagyl) 500 mg in 100 mls @ 100 mls/hr IVPB Q8 [facility] PRN Reason: Protocol Last Admin: 08/19/16 06:28 Dose: 100 mls/hr Ceftriaxone Sodium (Rocephin 1 Gram Ivpb) 1 gm in 100 mls @ 100 mls/hr IVPB DAILY [facility] PRN Reason: Protocol Last Admin: 08/19/16 09:31 Dose: 100 mls/hr Morphine Sulfate (Morphine) 2 mg IVP Q4H PRN PRN Reason: Pain, moderate (4-7) Last Admin: 08/19/16 10:30 Dose: 2 mg Ondansetron HCl (Zofran Inj) 4 mg IVP Q6H PRN PRN Reason: Nausea/Vomiting Pantoprazole Sodium (Protonix Inj) 40 mg IVP DAILY [facility] Last Admin: 08/19/16 09:31 Dose: 40 mg - Labs Labs: 08/19/16 06:50 08/19/16 06:50 PT 11.8 Seconds (9.9-11.8) 08/19/16 06:50 INR 1.09 (0.93-1.08) H 08/19/16 06:50 APTT 29.7 Seconds (23.7-30.8) 08/19/16 06:50 - Constitutional Appears: No Acute Distress - Head Exam Head Exam: NORMAL INSPECTION - Eye Exam Eye Exam: EOMI, Normal appearance Pupil Exam: PERRL - ENT Exam ENT Exam: Mucous Membranes Moist - Neck Exam Neck Exam: Full ROM - Respiratory Exam Respiratory Exam: Clear to Ausculation Bilateral, NORMAL BREATHING PATTERN - Cardiovascular Exam Cardiovascular Exam: REGULAR RHYTHM - GI/Abdominal Exam GI & Abdominal Exam: Soft Additional comments: mild midepigastic tenderness. No rebound. - Extremities Exam Extremities Exam: Full ROM, Normal Inspection - Back Exam Back Exam: NORMAL INSPECTION - Neurological Exam Neurological Exam: Alert, Awake, CN II-XII Intact - Psychiatric Exam Psychiatric exam: Normal Affect - Skin Skin Exam: Warm Assessment and Plan (1) Cholecystitis Status: Acute - Assessment and Plan (Free Text) Assessment: Patient continues on IV fluids, IV antibiotics, NPO, IV Protonix. She is encouraged to ambulate with assistance. This case was reviewed with from GI in detail. She will be evaulated by surgery. All of this was discussed with the paient and her at her bedside. * Assess/adjust medications daily and /or as needed * Educate patient regarding benefits, side effects and risks of prescribed medications This evaulation was completed on Thursday, August 18, 2016. It was entered into the system on August 19, 2016 due to computer problems throughout the entire [employer] system that are still persistent. *
[2016-08-19] MEDS ORDERED: Bupivacaine 0.5% Inj(30mL) ONE (12:13)
[2016-08-19] MEDS ORDERED: Iohexol 240 (50 ml) ONE ×2 (12:13→14:00)
--- NOTE | 2016-08-19 12:34 | CP.PCM.PN ---
Subjective - Date & Time of Evaluation Date of Evaluation: 08/19/16 Time of Evaluation: 12:00 - Subjective Subjective: The patient was examined at her bedside. Her Gene was present. The patient stated she remains NPO. She is on schedule for the OR this afternoon. She denied any fever, chills or vomiting. She states her last dose of MS was approximately 10:30 am. she denied the need for Zofran today. She continues to have mild RUQ discomfort. She had a formed BM yesterday. She denied any hemetemesis or melena. She is tolerating Iv fluids, IV Protonix and IV antibiotics. Her MRCP and HIDA scans were consistent with cholecystitis. Her case has been reviewed in detail with Dr. Davenport GI. He has reccommended surgery and spoken with the patient and Dr. Roca. Objective - Vital Signs/Intake and Output Vital Signs (last 24 hours): Temp Pulse Resp BP Pulse Ox 98.9 F 87 20 121/75 99 08/19/16 08:58 08/19/16 08:58 08/19/16 08:58 08/19/16 08:58 08/19/16 08:58 Intake and Output: 08/19/16 08/19/16 06:59 18:59 Intake Total 3000 Balance 3000 - Medications Medications: Current Medications Acetaminophen (Tylenol 325mg Tab) 650 mg PO Q6H PRN PRN Reason: Fever >100.4 F Last Admin: 08/18/16 17:57 Dose: 650 mg Sodium Chloride (Sodium Chloride 0.9%) 1,000 mls @ 100 mls/hr IV .Q10H [facility] Last Admin: 08/19/16 06:28 Dose: 100 mls/hr Metronidazole (Flagyl) 500 mg in 100 mls @ 100 mls/hr IVPB Q8 [facility] PRN Reason: Protocol Last Admin: 08/19/16 06:28 Dose: 100 mls/hr Ceftriaxone Sodium (Rocephin 1 Gram Ivpb) 1 gm in 100 mls @ 100 mls/hr IVPB DAILY [facility] PRN Reason: Protocol Last Admin: 08/19/16 09:31 Dose: 100 mls/hr Morphine Sulfate (Morphine) 2 mg IVP Q4H PRN PRN Reason: Pain, moderate (4-7) Last Admin: 08/19/16 10:30 Dose: 2 mg Ondansetron HCl (Zofran Inj) 4 mg IVP Q6H PRN PRN Reason: Nausea/Vomiting Pantoprazole Sodium (Protonix Inj) 40 mg IVP DAILY [facility] Last Admin: 08/19/16 09:31 Dose: 40 mg - Labs Labs: 08/19/16 06:50 08/19/16 06:50 PT 11.8 Seconds (9.9-11.8) 08/19/16 06:50 INR 1.09 (0.93-1.08) H 08/19/16 06:50 APTT 29.7 Seconds (23.7-30.8) 08/19/16 06:50 - Constitutional Appears: Well, In Acute Distress - Head Exam Head Exam: ATRAUMATIC, NORMAL INSPECTION, NORMOCEPHALIC - Eye Exam Eye Exam: EOMI, Normal appearance, PERRL Pupil Exam: NORMAL ACCOMODATION, PERRL - ENT Exam ENT Exam: Mucous Membranes Moist, Normal Exam - Neck Exam Neck Exam: Full ROM, Normal Inspection - Cardiovascular Exam Cardiovascular Exam: REGULAR RHYTHM - GI/Abdominal Exam GI & Abdominal Exam: Soft, Normal Bowel Sounds Additional comments: Mild RUQ discomfort on palpation - Extremities Exam Extremities Exam: Full ROM, Normal Capillary Refill, Normal Inspection - Back Exam Back Exam: NORMAL INSPECTION - Neurological Exam Neurological Exam: Alert, Awake, CN II-XII Intact, Oriented x3 - Psychiatric Exam Psychiatric exam: Normal Affect, Normal Mood - Skin Skin Exam: Intact, Normal Color, Warm Assessment and Plan (1) Cholecystitis Status: Acute - Assessment and Plan (Free Text) Assessment: Patient remain NPO. Continue IV fluid, IV Protonix, IV antibiotics, Pain management. Patient encouraged to ambulate with assistance. She has been walking with the help of her family members. Greater than 50 minutes was spent in the care, coordination of care, review of care and discussion of care for this patient today. I reviewed all of the above with the patient, her nurse, her and coconsultants. Plan: Patient is scheduled for GB removal today. Surgery will outline post operative care plan. Patient was advised no breast feeding until further notice. She must be off of analgesics and have [employer]ILING [employer]ER and pediatric MD approval to resume breast feeds. She explained the baby has been receiving only formula feedings since her hospital admission.
[2016-08-19] MEDS ORDERED: Succinylcholine 200 mg/10 ml Inj IV ONE (13:11)
[2016-08-19] MEDS ORDERED: Midazolam 2 MG/2 ML VIAL ONE (13:11)
[2016-08-19] MEDS ORDERED: Propofol 10 mg/ml Inj (20 ML) ONE (13:11)
[2016-08-19] MEDS ORDERED: ePHEDrine 50 mg/ml Inj ONE (13:33)
[2016-08-19] MEDS ORDERED: Neostigmine Methylsulfate 3mg/3ml Syringe IV ONE (14:21)
[2016-08-19] MEDS ORDERED: Bupivacaine 0.5% Inj(30mL) IJ ONE (15:05)
[2016-08-19] MEDS ORDERED: Morphine 4 mg/ml ISec ONE (15:13)
--- NOTE | 2016-08-19 15:35 | PCM.SURG1 ---
Surgeon's Initial Post Op Note - Surgeon's Notes Surgeon: Dr. Roca Chargeback Analyst: Dr. Hoyt Type of Anesthesia: General Endo, Local Pre-Operative Diagnosis: acute cholecystitis Operative Findings: see op report Post-Operative Diagnosis: same Operation Performed: laparoscopic cholecystectomy with intraoperative cholangiogram Specimen/Specimens Removed: gallbladder Estimated Blood Loss: EBL {In ML}: 20 Blood Products Given: N/A Drains Used: No Drains Post-Op Condition: Good Date of Surgery/Procedure: 08/19/16 Time of Surgery/Procedure: 15:34
[2016-08-19] MEDS ORDERED: HYDROmorphone 0.5 mg/0.5 ml ISec IVP PRN (15:37)
[2016-08-19] MEDS ORDERED: Lactated Ringer's 1,000 ML IV SCH (15:37)
[2016-08-19] MEDS ORDERED: HYDROmorphone 0.5 mg/0.5 ml ISec ONE ×2 (15:51→16:12)
[2016-08-19] MEDS ORDERED: HYDROmorphone 0.5 mg/0.5 ml ISec IVP ONE ×2 (15:53→16:14)
--- NOTE | 2016-08-19 16:04 | RAD ---
PROCEDURE: Operative cholangiogram HISTORY: ? CBD OBST COMPARISON: TECHNIQUE: Fluoroscopy was provided in the operating room. 1 minutes and 8 seconds of fluoroscopy. Six images were submitted. FINDINGS: The study shows passage of a balloon catheter through the distal common duct. Contrast flows into the duodenum without obstruction IMPRESSION: As above
[2016-08-19] MEDS ORDERED: Oxycodone/Acetaminophen 5/325 mg Tab PO PRN (17:06)
[2016-08-19] MEDS: Oxycodone/Acetaminophen 5/325 mg Tab PO PRN (21:29)
[2016-08-20] MEDS: Oxycodone/Acetaminophen 5/325 mg Tab PO PRN (02:26)
[2016-08-20] MEDS: metroNIDAZOLE IV 500 mg/100 ml 500 MG/100 ML BAG IVPB SCH (05:10)
[2016-08-20] MEDS: Morphine 2 mg/ml ISec IVP PRN (05:10)
[2016-08-20 06:58] LABS: ADD MANUAL DIFF? NO
[2016-08-20 07:12] LABS: BASO # 0.01 K/mm3 (0.0-2.0); BASO % 0.1 % (0.0-3.0); EOS # 0.1 (0.0-0.7); EOS % 1.4 % (1.5-5.0); GRAN # 5.31 (1.4-6.5); GRAN % 68.5 % (50.0-68.0); HEMATOCRIT 28.7 % (36.0-48.0); LYMPH # 1.7 (1.2-3.4); LYMPH % 21.9 % (22.0-35.0); MEAN CELL VOLUME 87.2 fL (80.0-105.0); MEAN CORPUSCULAR HEMOGLOBIN 28.6 pg (25.0-35.0); MEAN CORPUSCULAR HGB CONC 32.8 g/dl (31.0-37.0); MEAN PLATELET VOLUME 10.4 fl (7.0-11.0); MONO # 0.6 (0.1-0.6); MONO % 8.1 % (1.0-6.0); PLATELET COUNT 228 10^3/uL (120.0-450.0); RED CELL DISTRIBUTION WIDTH 14.3 % (11.5-14.5); WHITE BLOOD COUNT 7.8 10^3/ul (4.5-11.0)
[2016-08-20 07:24] LABS: ALB/GLOB RATIO 1.1 (1.1-1.8); ALKALINE PHOSPHATASE 67 U/L (38-133); ALT/SGPT 53 U/L (7-56); AST/SGOT 35 U/L (15-39); BILIRUBIN,TOTAL 0.5 mg/dL (0.2-1.3); BLOOD UREA NITROGEN 7 mg/dL (7-21); CARBON DIOXIDE 27 mmol/L (21-33); CHLORIDE 103 mmol/L (98-107); GFR AFRICAN-AMERICAN > 60; GLUCOSE,RANDOM 97 mg/dL (70-110); POTASSIUM 4.2 mmol/L (3.6-5.0); SODIUM 140 mmol/L (132-148)
--- NOTE | 2016-08-20 07:53 | CP.PCM.PN ---
Subjective - Date & Time of Evaluation Date of Evaluation: 08/20/16 Time of Evaluation: 06:50 - Subjective Subjective: General Surgery Pt S&E, NAEO. Tolerating diet. Ambulating. Pain controlled by meds Objective - Vital Signs/Intake and Output Vital Signs (last 24 hours): Temp Pulse Resp BP Pulse Ox 98 F 78 20 111/71 94 L 08/19/16 18:24 08/19/16 18:24 08/19/16 18:24 08/19/16 18:24 08/19/16 18:24 Intake and Output: 08/20/16 08/20/16 06:59 18:59 Intake Total 420 Balance 420 - Medications Medications: Current Medications Acetaminophen (Tylenol 325mg Tab) 650 mg PO Q6H PRN PRN Reason: Fever >100.4 F Last Admin: 08/18/16 17:57 Dose: 650 mg Metronidazole (Flagyl) 500 mg in 100 mls @ 100 mls/hr IVPB Q8 [facility] PRN Reason: Protocol Last Admin: 08/20/16 05:10 Dose: 100 mls/hr Ceftriaxone Sodium (Rocephin 1 Gram Ivpb) 1 gm in 100 mls @ 100 mls/hr IVPB DAILY [facility] PRN Reason: Protocol Last Admin: 08/19/16 09:31 Dose: 100 mls/hr Morphine Sulfate (Morphine) 2 mg IVP Q4H PRN PRN Reason: Pain, severe (8-10) Last Admin: 08/20/16 05:10 Dose: 2 mg Ondansetron HCl (Zofran Inj) 4 mg IVP Q6H PRN PRN Reason: Nausea/Vomiting Ondansetron HCl (Zofran Inj) 4 mg IVP ONCE PRN PRN Reason: Nausea/Vomiting Oxycodone/Acetaminophen (Percocet 5/325 Mg Tab) 1 tab PO Q4H PRN PRN Reason: Pain, moderate (4-7) Stop: 08/22/16 17:07 Oxycodone/Acetaminophen (Percocet 5/325 Mg Tab) 2 tab PO Q4H PRN PRN Reason: Pain, severe (8-10) Stop: 08/22/16 17:07 Last Admin: 08/20/16 02:26 Dose: 2 tab Pantoprazole Sodium (Protonix Inj) 40 mg IVP DAILY [facility] Last Admin: 08/19/16 09:31 Dose: 40 mg - Labs Labs: 08/20/16 06:45 08/20/16 06:45 PT 11.8 Seconds (9.9-11.8) 08/19/16 06:50 INR 1.09 (0.93-1.08) H 08/19/16 06:50 APTT 29.7 Seconds (23.7-30.8) 08/19/16 06:50 - Constitutional Appears: Non-toxic, No Acute Distress - Head Exam Head Exam: ATRAUMATIC, NORMOCEPHALIC - Eye Exam Eye Exam: EOMI. absent: Scleral icterus - Respiratory Exam Respiratory Exam: NORMAL BREATHING PATTERN. absent: Respiratory Distress - GI/Abdominal Exam GI & Abdominal Exam: Guarding (mild), Soft, Tenderness (at incision sites). absent: Distended, Firm, Rigid, Rebound - Neurological Exam Neurological Exam: Alert, Awake, Oriented x3 - Skin Skin Exam: Dry, Warm Assessment and Plan - Assessment and Plan (Free Text) Assessment: 31F POD#1 S/P laparoscopic cholecystectomy with IOC Plan: Doing well post op. Follow up in [address] Roca Consider toradol for home pain control Call for fever more than 101 or pain uncontrolled by meds Ok to shower, no baths Low fat diet Ok for DC from a surgical standpoint D/W Dr. Abelino Olvera PGY3
[2016-08-20 07:56] VITALS: BP 117/70; PULSE 66; RESP 16; TEMP 98.2; O2SAT 97
[2016-08-20] MEDS: cefTRIAXone 1 gm 1 GM/100 ML BAG IVPB SCH (09:20)
== END 2016-08-20 12:37 | disposition home or self-care (01) | DRG 419 ==
LOC: ED 04:27 → ERH 06:20 → 5RSO 09:10
PROVIDERS: ADMIT Internal Medicine; ATTEND Internal Medicine
PROC: BF031ZZ Plain Radiography of Gallbladder and Bile Ducts using Low Osmolar Contrast (ICD-10-PCS; 2016-08-19)
PROC: 0FT44ZZ Resection of Gallbladder, Percutaneous Endoscopic Approach (ICD-10-PCS; principal; 2016-08-19 14:00)
DX: K80.00 Calculus of gallbladder with acute cholecystitis without obstruction (principal); E66.3 Overweight; Z68.25 Body mass index [BMI] 25.0-25.9, adult